=== PATIENT | female | born 1955 | race Caucasian/White ===

== ENCOUNTER 2018-08-31 11:48 | Emergency (ER) | payer BC | END 2018-08-31 12:12 | disposition left against medical advice (07) | LOC: D.ER 11:48 | DX: M79.661 Pain in right lower leg (principal) ==

== ENCOUNTER → 2018-08-31 16:32 | Outpatient (CLI) | payer BC | END | disposition home or self-care (01) | LOC: D.US 16:32 | DX: R60.0 Localized edema (principal); M79.604 Pain in right leg ==

== ENCOUNTER 2019-06-01 02:32 | Emergency (ER) | payer BC ==
[~2019-06-01] VITALS: Ht 167.6 cm; Wt 54.5 kg
[2019-06-01 02:48] VITALS: Ht 167.6 cm; Wt 54.5 kg
[2019-06-01] MEDS ORDERED: LOVENOX60 MG/0.6 SC (02:49)
[2019-06-01] MEDS ORDERED: CYCLOBENZAPRINE10 MG PO (03:18)
[2019-06-01] MEDS ORDERED: IBUPROFEN800 MG PO (03:18)
[2019-06-01] MEDS ORDERED: ACETAMINOPHEN500 M1 PO (03:18)
[2019-06-01 04:23] VITALS: BP 148/70
== END 2019-06-01 04:03 | disposition home or self-care (01) ==
LOC: D.ER 02:32
DX: S76.011A Strain of muscle, fascia and tendon of right hip, initial encounter (principal); X58.XXXA Exposure to other specified factors, initial encounter